=== PATIENT | male | born 1950 ===

== ENCOUNTER 2018-10-26 01:26 | Inpatient (IN) | payer BC, MEDICARE ==
[2018-10-26] MEDS ORDERED: Nitroglycerin 2% Ointment Foilpak UD TOP STA (02:16)
[2018-10-26] MEDS ORDERED: Albuterol-Ipratrop 3 mg / 0.5 (3 ml) UD INH STA (02:17)
[2018-10-26] MEDS ORDERED: Nitroglycerin 2% Ointment Foilpak UD TOP ONE (02:28)
[2018-10-26] MEDS ORDERED: Albuterol-Ipratrop 3 mg / 0.5 (3 ml) UD ONE ×3 (02:30→08:31)
--- NOTE | 2018-10-26 02:37 | ED PDOC ---
HPI: SOB/CHF/COPD Time Seen by Provider: 10/26/18 02:02 Chief Complaint (Nursing): Shortness Of Breath Chief Complaint (Provider): Shortness Of Breath History Per: Patient History/Exam Limitations: no limitations Onset/Duration Of Symptoms: Days (x2) Associated Symptoms: Chest Pain Additional Complaint(s): 68 y/o male with history of HTN, TIA, and diabetes, presents to the ED complaining of shortness of breath since yesterday. Patient states he has had worsening shortness of breath for 2 days and describes dyspnea on exertion as well as chest pain. Patient also reports generalized weakness. PMD: Cachorro Burr Past Medical History Reviewed: Historical Data, Nursing Documentation, Vital Signs Vital Signs: Last Vital Signs Temp 99.2 F 10/26/18 01:48 Pulse 104 H 10/26/18 01:48 Resp 18 10/26/18 01:48 BP 136/65 10/26/18 01:48 Pulse Ox 90 L 10/26/18 01:48 - Medical History PMH: Diabetes, HTN, Hypercholesterolemia, TIA Denies: Chronic Kidney Disease - Surgical History Surgical History: No Surg Hx - Family History Family History: States: Diabetes, Hypertension - Social History Current smoker - smoking cessation education provided: No Alcohol: None Drugs: Denies - Home Medications Home Medications: Ambulatory Orders Medication Instructions Recorded Folic Acid 1 mg PO 09/09/14 Pramipexole Di-HCl [Pramipexole 1 mg PO 09/09/14 Dihydrochloride] Simvastatin 20 mg PO DAILY 09/09/14 Valsartan 320 mg PO DAILY 09/09/14 metFORMIN [glucOPHAGE] 1,000 mg PO BID 09/09/14 Aspirin/Dipyridamole [Aggrenox 1 ea PO BID #0 cap 09/11/14 25-200 mg] Carvedilol [Coreg] 25 mg PO Q12 #0 tab 09/11/14 SITagliptin [Januvia] 100 mg PO DAILY #0 tab 09/11/14 - Allergies Allergies/Adverse Reactions: Allergies Allergy/AdvReac Type Severity Reaction Status Date / Time No Known Allergies Allergy Verified 09/09/14 17:08 Review of Systems ROS Statement: Except As Marked, All Systems Reviewed And Found Negative Constitutional: Positive for: Weakness Cardiovascular: Positive for: Chest Pain Respiratory: Positive for: Shortness of Breath, Other (Dyspnea on Exertion) Physical Exam - Reviewed Nursing Documentation Reviewed: Yes Vital Signs Reviewed: Yes - Physical Exam Appears: Positive for: In Acute Distress (respiratory) Head Exam: Positive for: ATRAUMATIC, NORMAL INSPECTION, NORMOCEPHALIC Skin: Positive for: Normal Color, Warm, DRY Eye Exam: Positive for: EOMI, Normal appearance, PERRL ENT: Positive for: Normal ENT Inspection Neck: Positive for: Normal, Painless ROM Cardiovascular/Chest: Positive for: JVD (1+) Respiratory: Positive for: Rales (bi-basilar) Gastrointestinal/Abdominal: Positive for: Normal Exam, Soft. Negative for: Tenderness Back: Positive for: Normal Inspection Extremity: Positive for: Normal ROM. Negative for: Pedal Edema, Deformity, Swelling (bilateral legs) Neurological/Psych: Positive for: Awake, Alert, Normal Tone. Negative for: Motor/Sensory Deficits - Laboratory Results Result Diagrams: 10/26/18 02:40 10/26/18 02:40 - ECG O2 Sat by Pulse Oximetry: 90 (RA) Pulse Ox Interpretation: Abnormal - Critical Care Total Time (In Min): 30 Documented Critical Care: Time excludes all time spent performint seperately billable procedures Medical Decision Making Medical Decision Making: Time: 02:16 Impression: 68 y/o with CHF Initial Plan: * Duonebs * Lasix * Nitroglycerin * Influenza A B * Labs * CXR 04:01 CXR show mild cardiomegaly. Patient will be placed on observation for chest pain. Case referred to Dr. Burr. Scribe Attestation: Documented by Gerardo Chauhan, acting as a scribe Guillaume Romeo MD Provider Scribe Attestation: All medical record entries made by the Scribe were at my direction and personally dictated by me. I have reviewed the chart and agree that the record accurately reflects my personal performance of the history, physical exam, medical decision making, and the department course for this patient. I have also personally directed, reviewed, and agree with the discharge instructions and disposition Disposition - Clinical Impression Clinical Impression: Chest pain - Patient ED Disposition Is Patient to be Admitted: Yes - Disposition Disposition Time: 04:01 Condition: FAIR - Pt Status Changed To: Hospital Disposition Of: Observation
[2018-10-26 03:00] LABS: BASO % 0.3 % (0.0-2.0); EOS % 0.1 % (0.0-4.0); HEMOGLOBIN 13.4 g/dL (12.0-18.0); LYMPH # 1.2 K/uL (1.0-4.3); LYMPH % 14.5 % (20.0-40.0); MEAN CELL VOLUME 95.2 fl (80.0-94.0); MEAN CORPUSCULAR HEMOGLOBIN 32.4 pg (27.0-31.0); MEAN CORPUSCULAR HGB CONC 34.1 g/dL (33.0-37.0); MONO # 1.2 K/uL (0.0-0.8); MONO % 14.9 % (0.0-10.0); NEUT # 5.8 K/uL (1.8-7.0); NEUT % 70.2 % (50.0-75.0); RBC 4.13 Mil/uL (4.40-5.90); RED CELL DISTRIBUTION WIDTH 12.6 % (11.5-14.5); WHITE BLOOD COUNT 8.2 K/uL (4.8-10.8)
[2018-10-26 03:08] LABS: INR 1.2; PROTHROMBIN TIME 13.3 Seconds (9.8-13.1)
[2018-10-26 03:10] LABS: PARTIAL THROMBOPLASTIN TIME 31.5 Seconds (25.6-37.1)
[2018-10-26 03:14] LABS: ALB/GLOB RATIO 1.1 (1.0-2.1)
[2018-10-26 03:26] LABS: ALBUMIN 3.8 g/dL (3.5-5.0); ALT/SGPT 46 U/L (21-72); AST/SGOT 45 U/L (17-59); BLOOD UREA NITROGEN 18 mg/dl (9-20); CALCIUM 8.6 mg/dL (8.4-10.2); GFR NON-AFRICAN AMERICAN > 60
[2018-10-26 03:36] LABS: B-TYPE NATRIURETIC PEPTIDE 183 pg/ml (0-900)
[2018-10-26 08:07] LABS: ABG ALLEN TEST YES; ARTERIAL BLOOD GAS HCO3 29.9 mmol/L (21-28); ARTERIAL BLOOD GAS HEMOGLOBIN 13.6 g/dL (11.7-17.4); ARTERIAL BLOOD GAS O2 CAPACITY 18.3 mL/dL (16-24); ARTERIAL BLOOD GAS O2 CONTENT 16.5 ML/dL (15-23); ARTERIAL BLOOD GAS O2 SAT 90.4 % (95-98); ARTERIAL BLOOD GAS PCO2 43 mm/Hg (35-45); ARTERIAL BLOOD GAS PH 7.47 (7.35-7.45); ARTERIAL BLOOD GAS PO2 50 mm/Hg (80-100); ARTERIAL BLOOD GAS TCO2 32.6 mmol/L (22-28)
--- NOTE | 2018-10-26 08:24 | CARD ---
APPROVED REPORT Date of service: 10/26/2018 EKG Measurement Heart [id number] <Conclusion> Sinus tachycardia Possible Left atrial enlargement Left axis deviation Left ventricular hypertrophy Cannot rule out Septal infarct, age undetermined Abnormal ECG
[2018-10-26] MEDS: Albuterol-Ipratrop 3 mg / 0.5 (3 ml) UD INH SCH ×3 (08:30→19:10)
[2018-10-26] MEDS ORDERED: Acetylcysteine 10% 4 ML IH ONE ×2 (08:30→09:00)
[2018-10-26] MEDS ORDERED: Sodium Chloride 0.9% 500 ML IV ONE (08:30)
[2018-10-26 08:38] VITALS: BMI 34.2
[2018-10-26 08:59] LABS: SQUAMOUS EPITHIAL 1 /hpf (0-5); URINE BILIRUBIN NEGATIVE (NEGATIVE); URINE BLOOD NEGATIVE (NEGATIVE); URINE CLARITY SLIGHTY-CLOUDY (Clear); URINE COLOR YELLOW (YELLOW); URINE GLUCOSE (UA) >=500 mg/dL (NEGATIVE); URINE LEUKOCYTE ESTERASE NEG Leu/uL (Negative); URINE PROTEIN 100 mg/dL (NEGATIVE); URINE UROBILINOGEN 0.2-1.0 mg/dL (0.2-1.0)
[2018-10-26] MEDS: Enoxaparin 40 mg Syringe SC SCH (09:28)
[2018-10-26] MEDS: guaiFENesin 600 mg ER Tab PO SCH ×2 (09:29→21:12)
[2018-10-26] MEDS: Polymyxin/Trimethoprim Ophth Soln OU SCH ×3 (09:29→21:12)
[2018-10-26] MEDS ORDERED: Sodium Chloride 0.9% 50 ML IV ONE (10:28)
[2018-10-26] MEDS ORDERED: Iodixanol 320 MG/ML 100 ML BOTTLE IV ONE (10:28)
--- NOTE | 2018-10-26 11:25 | RAD ---
Date of service: 10/26/2018 HISTORY: chest pain COMPARISON: 09/09/2014 TECHNIQUE: 1 view obtained. FINDINGS: LUNGS: No active pulmonary disease. PLEURA: No significant pleural effusion identified, no pneumothorax apparent. CARDIOVASCULAR: No aortic atherosclerotic calcification present. Normal cardiac size. No pulmonary vascular congestion. OSSEOUS STRUCTURES: No significant abnormalities. VISUALIZED UPPER ABDOMEN: Normal. OTHER FINDINGS: None. IMPRESSION: No active disease.
[2018-10-26] MEDS ORDERED: Dextrose 50% SYRINGE Inj (50 ml) IV PRN (11:28)
[2018-10-26] MEDS ORDERED: Glucagon Recombinant 1 mg Inj IM PRN (11:28)
[2018-10-26] MEDS ORDERED: Insulin Lispro (humaLOG) 100 Units/ml Inj SC ONE (11:31)
[2018-10-26] MEDS: levoFLOXacin 750 mg in D5W 750 MG/150 ML BAG IVPB SCH (11:33)
[2018-10-26] MEDS: Insulin Regular 100 units/ml SC SCH ×3 (11:33→22:07)
[2018-10-26] MEDS ORDERED: Insulin Regular 100 units/ml ONE (11:41)
[2018-10-26] MEDS ORDERED: Pneumococcal 23-Valent Vaccine IM ONE (12:27)
--- NOTE | 2018-10-26 12:34 | CT ---
Date of service: 10/26/2018 PROCEDURE: CT Chest with contrast (Pulmonary Angiogram) HISTORY: Dyspnea, Hypoxia, elevated D-dimer; rule out PE COMPARISON: Not available TECHNIQUE: Axial computed tomography images were obtained of the chest in the pulmonary arterial phase of enhancement. Coronal and sagittal reformatted images were created and reviewed. Intravenous contrast dose: 99 cc Visipaque 320 Radiation dose: Total exam DLP = 344.48 mGy-cm. This CT exam was performed using one or more of the following dose reduction techniques: Automated exposure control, adjustment of the mA and/or kV according to patient size, and/or use of iterative reconstruction technique. FINDINGS: PULMONARY ARTERIES: Technically limited examination due to suboptimal timing of the scan relative to the contrast bolus. No evidence of pulmonary arterial filling defect in the main, lobar and segmental arteries. Unable to adequately evaluate subsegmental pulmonary artery branches for pulmonary embolism. AORTA: No acute findings. No thoracic aortic aneurysm. There is atherosclerotic calcification of the thoracic aorta. LUNGS: The lungs are significant for multiple tiny nodules in both lower lobes with some areas of a confluency. This likely represents small airways disease which is nonspecific. Consider the possibility of an infectious etiology. There is also subsegmental atelectasis in both lower lobes. PLEURAL SPACES: Unremarkable. No effusion or pneumothorax. HEART: Unremarkable. No cardiomegaly. No significant pericardial effusion. LYMPH NODES: No lymphadenopathy. BONES, CHEST WALL: Unremarkable. No fracture or destructive lesion OTHER FINDINGS: Unremarkable. IMPRESSION: Limited examination. No evidence of pulmonary embolism. Unable to evaluate subsegmental pulmonary artery branches for pulmonary embolism. Numerous tiny nodules in both lower lobes likely reflecting small airways disease common nonspecific. Bilateral lower lobe subsegmental atelectasis. No additional abnormality.
[2018-10-26] MEDS ORDERED: guaiFENesin DM 200 mg-20 mg/10 ml UD PO ONE ×2 (15:42)
[2018-10-26] MEDS: Aspirin-Dipyridamole 200-25 mg ER Cap PO SCH (16:16)
[2018-10-26] MEDS ORDERED: GlipiZIDE 10 mg SR Tab PO SCH (17:00)
[2018-10-27] MEDS: Albuterol-Ipratrop 3 mg / 0.5 (3 ml) UD INH SCH ×7 (02:41→23:41)
[2018-10-27] MEDS: Polymyxin/Trimethoprim Ophth Soln OU SCH ×4 (04:33→22:07)
[2018-10-27 06:15] LABS: HDL CHOLESTEROL 31 MG/DL (30-70)
[2018-10-27 06:25] LABS: LDL CHOLESTEROL 46 mg/dL (0-129)
[2018-10-27] MEDS ORDERED: HCTHIAZID PO SCH (09:00)
[2018-10-27] MEDS ORDERED: INSULIN GLARGINE HUM REC ANLOG 20 UNIT SQ SCH (09:00)
[2018-10-27] MEDS ORDERED: VALSARTAN PO SCH (09:00)
[2018-10-27] MEDS ORDERED: AMLODIPINE PO SCH (09:00)
[2018-10-27] MEDS: Aspirin-Dipyridamole 200-25 mg ER Cap PO SCH ×2 (09:45→18:02)
[2018-10-27] MEDS: GlipiZIDE 10 mg SR Tab PO SCH ×2 (09:46→18:02)
[2018-10-27] MEDS: Enoxaparin 40 mg Syringe SC SCH (09:48)
[2018-10-27] MEDS: guaiFENesin 600 mg ER Tab PO SCH ×2 (09:49→22:06)
--- NOTE | 2018-10-27 09:49 | CP.PCM.HP ---
<Jef Figueroa - Last Filed: 10/27/18 09:38> History of Present Illness - History of Present Illness History of Present Illness: 68 y/o male with hx of HTN, DM, Hx of CVA and Former Smoker, who presents to ED with complaints of productive cough, chest pain, generalized weakness, and subjective fevers admitted for further evaluation of chest pain. States he recently went on vacation to [facility] and upon returning 1 week ago, started having cough, congestion, and chest pain with exertion. He has also felt very weak in his legs. Denies sick contacts. PMD: Dr. Burr Present on Admission - Present on Admission Any Indicators Present on Admission: No History of DVT/PE: No History of Uncontrolled Diabetes: No Urinary Catheter: No Decubitus Ulcer Present: No Past Patient History - Past Medical History & Family History Past Medical History?: Yes - Past Social History Alcohol: None Drugs: Denies - CARDIAC Hx Hypercholesterolemia: Yes Hx Hypertension: Yes - PULMONARY Hx Respiratory Disorders: No - NEUROLOGICAL Hx Transient Ischemic Attacks (TIA): Yes - HEENT Hx HEENT Problems: No - RENAL Hx Chronic Kidney Disease: No - ENDOCRINE/METABOLIC Hx Endocrine Disorders: Yes (DM II) Hx Diabetes Mellitus Type 2: Yes - HEMATOLOGICAL/ONCOLOGICAL Hx Blood Disorders: No - INTEGUMENTARY Hx Dermatological Problems: No - MUSCULOSKELETAL/RHEUMATOLOGICAL Hx Musculoskeletal Disorders: No Hx Falls: No - GASTROINTESTINAL Hx Gastrointestinal Disorders: No - GENITOURINARY/GYNECOLOGICAL Hx Genitourinary Disorders: No - PSYCHIATRIC Hx Psychophysiologic Disorder: No Hx Substance Use: No - SURGICAL HISTORY Hx Surgeries: No - ANESTHESIA Hx Anesthesia: No Hx Anesthesia Reactions: No Meds Allergies/Adverse Reactions: Allergies Allergy/AdvReac Type Severity Reaction Status Date / Time No Known Allergies Allergy Verified 09/09/14 17:08 Physical Exam - Constitutional Appears: No Acute Distress - Head Exam Head Exam: NORMAL INSPECTION - Eye Exam Eye Exam: Normal appearance - ENT Exam ENT Exam: Mucous Membranes Moist - Neck Exam Neck exam: Positive for: Full Rom - Respiratory Exam Respiratory Exam: Rhonchi (Scattered rhonchi that partially clears with cough ). absent: Rales, Wheezes, Stridor - Cardiovascular Exam Cardiovascular Exam: REGULAR RHYTHM - GI/Abdominal Exam GI & Abdominal Exam: Normal Bowel Sounds - Extremities Exam Extremities exam: Positive for: normal inspection. Negative for: pedal edema - Neurological Exam Neurological exam: Alert, Oriented x3 - Psychiatric Exam Psychiatric exam: Normal Affect - Skin Skin Exam: Normal Color Results - Vital Signs Recent Vital Signs: Last Vital Signs Temp 97.5 F L 10/26/18 07:28 Pulse 89 10/26/18 08:49 Resp 20 10/26/18 08:49 BP 119/60 10/26/18 08:49 Pulse Ox 98 10/26/18 08:49 - Labs Result Diagrams: 10/26/18 02:40 10/26/18 02:40 Labs: Laboratory Results - last 24 hr 10/26/18 10/26/18 10/26/18 02:17 02:40 02:40 WBC 8.2 RBC 4.13 L Hgb 13.4 Hct 39.3 MCV 95.2 H MCH 32.4 H MCHC 34.1 RDW 12.6 Plt Count 262 MPV 8.0 Neut % (Auto) 70.2 Lymph % (Auto) 14.5 L [place] % (Auto) 14.9 H Eos % (Auto) 0.1 Baso % (Auto) 0.3 Neut # (Auto) 5.8 Lymph # (Auto) 1.2 [place] # (Auto) 1.2 H Eos # (Auto) 0.0 Baso # (Auto) 0.0 PT INR APTT D-Dimer, Quantitative pCO2 pO2 HCO3 ABG pH ABG Total CO2 ABG O2 Saturation ABG O2 Content ABG Base Excess ABG Hemoglobin ABG Carboxyhemoglobin POC ABG HHb (Measured) ABG Methemoglobin ABG O2 Capacity Denis Test A-a O2 Difference Hgb O2 Saturation FiO2 Sodium 134 Potassium 3.6 Chloride 93 L Carbon Dioxide 32 H Anion Gap 13 BUN 18 Creatinine 1.1 Est GFR ( Amer) > 60 Est GFR (Non-Af Amer) > 60 POC Glucose (mg/dL) 326 H Random Glucose 313 H Calcium 8.6 Total Bilirubin 1.3 AST 45 ALT 46 Alkaline Phosphatase 113 Troponin I 0.0120 NT-Pro-B Natriuret Pep 183 Total Protein 7.4 Albumin 3.8 Globulin 3.6 Albumin/Globulin Ratio 1.1 Urine Color Urine Clarity Urine pH Ur Specific [place] Urine Protein Urine Glucose (UA) Urine Ketones Urine Blood Urine Nitrate Urine Bilirubin Urine Urobilinogen Ur Leukocyte Esterase Urine RBC (Auto) Urine Microscopic WBC Ur Squamous Epith Cells Hyaline Casts Influenza Typ A,B (EIA) 10/26/18 10/26/18 10/26/18 02:40 02:40 07:56 WBC RBC Hgb Hct MCV MCH MCHC RDW Plt Count MPV Neut % (Auto) Lymph % (Auto) [place] % (Auto) Eos % (Auto) Baso % (Auto) Neut # (Auto) Lymph # (Auto) [place] # (Auto) Eos # (Auto) Baso # (Auto) PT 13.3 H INR 1.2 APTT 31.5 D-Dimer, Quantitative pCO2 43 pO2 50 L HCO3 29.9 H ABG pH 7.47 H ABG Total CO2 32.6 H ABG O2 Saturation 90.4 L ABG O2 Content 16.5 ABG Base Excess 6.8 H ABG Hemoglobin 13.6 ABG Carboxyhemoglobin 2.1 H POC ABG HHb (Measured) 9.2 H ABG Methemoglobin 2.1 ABG O2 Capacity 18.3 Denis Test Yes A-a O2 Difference 46.0 Hgb O2 Saturation 86.6 L FiO2 21.0 Sodium Potassium Chloride Carbon Dioxide Anion Gap BUN Creatinine Est GFR ( Amer) Est GFR (Non-Af Amer) POC Glucose (mg/dL) Random Glucose Calcium Total Bilirubin AST ALT Alkaline Phosphatase Troponin I NT-Pro-B Natriuret Pep Total Protein Albumin Globulin Albumin/Globulin Ratio Urine Color Urine Clarity Urine pH Ur Specific [place] Urine Protein Urine Glucose (UA) Urine Ketones Urine Blood Urine Nitrate Urine Bilirubin Urine Urobilinogen Ur Leukocyte Esterase Urine RBC (Auto) Urine Microscopic WBC Ur Squamous Epith Cells Hyaline Casts Influenza Typ A,B (EIA) Negative for flu a/b 10/26/18 10/26/18 10/26/18 08:15 08:15 08:20 WBC RBC Hgb Hct MCV MCH MCHC RDW Plt Count MPV Neut % (Auto) Lymph % (Auto) [place] % (Auto) Eos % (Auto) Baso % (Auto) Neut # (Auto) Lymph # (Auto) [place] # (Auto) Eos # (Auto) Baso # (Auto) PT INR APTT D-Dimer, Quantitative 767 H pCO2 pO2 HCO3 ABG pH ABG Total CO2 ABG O2 Saturation ABG O2 Content ABG Base Excess ABG Hemoglobin ABG Carboxyhemoglobin POC ABG HHb (Measured) ABG Methemoglobin ABG O2 Capacity Denis Test A-a O2 Difference Hgb O2 Saturation FiO2 Sodium Potassium Chloride Carbon Dioxide Anion Gap BUN Creatinine Est GFR ( Amer) Est GFR (Non-Af Amer) POC Glucose (mg/dL) Random Glucose Calcium Total Bilirubin AST ALT Alkaline Phosphatase Troponin I 0.0150 NT-Pro-B Natriuret Pep Total Protein Albumin Globulin Albumin/Globulin Ratio Urine Color Yellow Urine Clarity Slighty-cloudy Urine pH 6.0 Ur Specific [place] 1.013 Urine Protein 100 Urine Glucose (UA) >=500 Urine Ketones Negative Urine Blood Negative Urine Nitrate Negative Urine Bilirubin Negative Urine Urobilinogen 0.2-1.0 Ur Leukocyte Esterase Neg Urine RBC (Auto) 1 Urine Microscopic WBC 3 Ur Squamous Epith Cells 1 Hyaline Casts 3-5 H Influenza Typ A,B (EIA) 10/26/18 08:48 WBC RBC Hgb Hct MCV MCH MCHC RDW Plt Count MPV Neut % (Auto) Lymph % (Auto) [place] % (Auto) Eos % (Auto) Baso % (Auto) Neut # (Auto) Lymph # (Auto) [place] # (Auto) Eos # (Auto) Baso # (Auto) PT INR APTT D-Dimer, Quantitative pCO2 pO2 HCO3 ABG pH ABG Total CO2 ABG O2 Saturation ABG O2 Content ABG Base Excess ABG Hemoglobin ABG Carboxyhemoglobin POC ABG HHb (Measured) ABG Methemoglobin ABG O2 Capacity Denis Test A-a O2 Difference Hgb O2 Saturation FiO2 Sodium Potassium Chloride Carbon Dioxide Anion Gap BUN Creatinine Est GFR ( Amer) Est GFR (Non-Af Amer) POC Glucose (mg/dL) 346 H Random Glucose Calcium Total Bilirubin AST ALT Alkaline Phosphatase Troponin I NT-Pro-B Natriuret Pep Total Protein Albumin Globulin Albumin/Globulin Ratio Urine Color Urine Clarity Urine pH Ur Specific [place] Urine Protein Urine Glucose (UA) Urine Ketones Urine Blood Urine Nitrate Urine Bilirubin Urine Urobilinogen Ur Leukocyte Esterase Urine RBC (Auto) Urine Microscopic WBC Ur Squamous Epith Cells Hyaline Casts Influenza Typ A,B (EIA) Assessment & Plan - Assessment and Plan (Free Text) Assessment: 68 y/o male with hx of HTN, DM, Hx of CVA and Former Smoker, who presents to ED with complaints of productive cough, chest pain, generalized weakness, and subjective fevers admitted for further evaluation of chest pain. # Chest pain # Cough # Dyspnea # Hyperglycemia - Chest pain: EKG NSR, no ischemic findings. Cardiac Enzymes negative x3. Cardiology consulted given high risk factors; may benefit from stress test - Levofloxacin for likely CAP - D dimer elevated; CT Angio: PE ruled out - Significant mucuous secretions heard in airways; Chest physiotherapy, mucolytics, Duonebulizer q4 - Pt is poorly compliant with home insulin; restarted here and educated on medication compliance; F/U Hga1c - PT for mobility and strength - Management of chronic conditions as ordered Discussed case with Dr. Leno Figueroa, PGY2 <Cachorro Burr - Last Filed: 11/03/18 06:14> Results - Vital Signs Recent Vital Signs: Last Vital Signs Temp 98.0 F 10/30/18 16:18 Pulse 70 10/30/18 16:18 Resp 16 10/30/18 16:18 BP 109/57 L 10/30/18 16:18 Pulse Ox 95 10/30/18 16:18 - Labs Result Diagrams: 10/29/18 05:33 10/29/18 05:33 Labs: Laboratory Results - last 24 hr 10/29/18 10/30/18 22:57 05:12 POC Glucose (mg/dL) 312 H 234 H Assessment & Plan - Assessment and Plan (Free Text) Assessment: Patient was personally seen and examined by me in rounds with residents. Available labs and diagnostic data reviewed. Case, Patient's condition and management plan discussed with residents in rounds. Agree with resident's progress note. Plan: As ordered.
--- NOTE | 2018-10-27 09:53 | CP.PCM.PN ---
<Henry,Jef - Last Filed: 10/27/18 09:49> Subjective - Date & Time of Evaluation Date of Evaluation: 10/27/18 Time of Evaluation: 08:00 - Subjective Subjective: Pt seen and examined this am with Dr. Burr. States his breathing is significantly improved and chest pain is resolved. Discussed plan with patient. Objective - Vital Signs/Intake and Output Vital Signs (last 24 hours): Temp Pulse Resp BP Pulse Ox 98.5 F 80 18 127/70 96 10/27/18 08:13 10/27/18 08:13 10/27/18 08:13 10/27/18 08:13 10/27/18 08:13 - Medications Medications: Current Medications Acetaminophen (Tylenol 325mg Tab) 650 mg PO Q6 PRN PRN Reason: Fever >100.4 F Acetylcysteine (Mucomyst 10% 4ml) 2 ml IH RBID BETH Albuterol/Ipratropium (Duoneb 3 Mg/0.5 Mg (3 Ml) Ud) 3 ml INH RQ4 [facility] Last Admin: 10/27/18 08:54 Dose: 3 ml Atorvastatin Calcium (Lipitor) 80 mg PO HS BETH Carvedilol (Coreg) 6.25 mg PO DAILY [facility] Dextrose (Dextrose 50% Inj) 0 ml IV STAT PRN; Protocol PRN Reason: Hypoglycemia Protocol Dextrose (Glutose 15) 0 gm PO ONCE PRN; Protocol PRN Reason: Hypoglycemia Protocol Dipyridamole/Aspirin (Aggrenox 25-200 Mg) 1 ea PO BID [facility] Last Admin: 10/26/18 16:16 Dose: 1 ea Enoxaparin Sodium (Lovenox) 40 mg SC DAILY [facility]; Protocol Last Admin: 10/26/18 09:28 Dose: 40 mg Famotidine (Pepcid) 20 mg PO BID [facility] Last Admin: 10/26/18 16:16 Dose: 20 mg Fenofibrate (Tricor) 145 mg PO DAILY [facility] Gabapentin (Neurontin) 300 mg PO TID [facility] Last Admin: 10/26/18 16:16 Dose: 300 mg Glipizide (Glucotrol Xl) 10 mg PO BIDWM [facility] Glucagon (Glucagen Diagnostic Kit) 0 mg IM STAT PRN; Protocol PRN Reason: Hypoglycemia Protocol Guaifenesin (Mucinex La) 600 mg PO Q12 [facility] Last Admin: 10/26/18 21:12 Dose: 600 mg Home Med (Amlodipine/Valsartan/Hcthiazid [Exforge Hct 10-320-25 Mg Tab]) 1 tab PO DAILY [facility] Home Med (Empagliflozin [Jardiance]) 25 mg PO DAILY [facility] Home Med (Insulin Glargine,Hum.Rec.Anlog [Tru Oliveros]) 20 units SQ DAILY [facility] Levofloxacin/Dextrose (Levaquin 750mg) 750 mg in 150 mls @ 100 mls/hr IVPB DAILY [facility]; Protocol Last Admin: 10/26/18 11:33 Dose: 100 mls/hr Insulin Human Regular (Humulin R) 0 units SC ACHS [facility]; Protocol Last Admin: 10/26/18 22:07 Dose: Not Given Metformin HCl (Glucophage) 1,000 mg PO BID [facility] Last Admin: 10/26/18 16:16 Dose: 1,000 mg Nitroglycerin (Nitrostat Sl Tab) 0.4 mg SL Q5M PRN PRN Reason: chest pain Polymyxin/Trimethoprim Sulfate (Polytrim Ophth Soln) 1 drop OU Q6 [facility] Last Admin: 10/27/18 04:33 Dose: 1 drop - Labs Labs: 10/26/18 02:40 10/26/18 02:40 PT 13.3 Seconds (9.8-13.1) H 10/26/18 02:40 INR 1.2 10/26/18 02:40 APTT 31.5 Seconds (25.6-37.1) 10/26/18 02:40 - Constitutional Appears: No Acute Distress - Head Exam Head Exam: NORMAL INSPECTION - Eye Exam Eye Exam: Normal appearance - ENT Exam ENT Exam: Mucous Membranes Moist - Respiratory Exam Respiratory Exam: Clear to Ausculation Bilateral, Rhonchi (scattered, imrpoved ). absent: Accessory Muscle Use, Rales, Wheezes - Cardiovascular Exam Cardiovascular Exam: REGULAR RHYTHM - GI/Abdominal Exam GI & Abdominal Exam: Normal Bowel Sounds - Extremities Exam Extremities Exam: Normal Inspection - Neurological Exam Neurological Exam: Alert, Awake, Normal Gait - Psychiatric Exam Psychiatric exam: Normal Affect - Skin Skin Exam: Normal Color Assessment and Plan - Assessment and Plan (Free Text) Assessment: 68 y/o male with hx of HTN, DM, Hx of CVA and Former Smoker, who presents to ED with complaints of productive cough, chest pain, generalized weakness, and subjective fevers admitted for further evaluation of chest pain. # Chest pain # Cough # Dyspnea # Hyperglycemia - Chest pain: EKG NSR, no ischemic findings. Cardiac Enzymes negative x3. Cardiology consulted given high risk factors; may benefit from stress test - Levofloxacin for likely CAP - D dimer elevated; CT Angio: PE ruled out - Significant mucuous secretions heard in airways; Chest physiotherapy, mucolytics, Duonebulizer q4 - Pt is poorly compliant with home insulin; restarted here and educated on medication compliance; F/U Hga1c - PT for mobility and strength - Management of chronic conditions as ordered Discussed case with Dr. Leno Figueroa, PGY2 <Cachorro Burr - Last Filed: 11/03/18 06:14> Objective - Vital Signs/Intake and Output Vital Signs (last 24 hours): Temp Pulse Resp BP Pulse Ox 98.0 F 70 16 109/57 L 95 10/30/18 16:18 10/30/18 16:18 10/30/18 16:18 10/30/18 16:18 10/30/18 16:18 - Labs Labs: 10/29/18 05:33 10/29/18 05:33 PT 13.3 Seconds (9.8-13.1) H 10/26/18 02:40 INR 1.2 10/26/18 02:40 APTT 31.5 Seconds (25.6-37.1) 10/26/18 02:40 Assessment and Plan - Assessment and Plan (Free Text) Assessment: Patient was personally seen and examined by me in rounds with residents. Available labs and diagnostic data reviewed. Case, Patient's condition and management plan discussed with residents in rounds. Agree with resident's progress note. Plan: As ordered.
[2018-10-27] MEDS: Insulin Regular 100 units/ml SC SCH ×4 (10:53→22:05)
[2018-10-27] MEDS: levoFLOXacin 750 mg in D5W 750 MG/150 ML BAG IVPB SCH (10:54)
--- NOTE | 2018-10-27 14:50 | CP.PCM.CON ---
<Brea Mendoza - Last Filed: 10/27/18 16:06> History of Present Illness - History of Present Illness History of Present Illness: Brea Mendoza, PGY-1, Cardiology Consult Note for Dr. Denise 68 year old male with past medical history of diabetes mellitus and hypertension presents with chest pain, shortness of breath, and cough for 1 month. Patient reports going to [facility] from October 03 to the . Patient started to have cough with yellow sputum, shortness of breath, but no fever after being in the rain. Patient subsequently had pressure like chest pain starting on October 18. Pain stopped yesterday. Patient had no exacerbating or remitting factors for the chest pain. Patient denies any other symptoms at this time. PMH: Diabetes, Hypertension PSH: denies FMHx: Mother from stomach cancer at 60, Brother had AAA Allergies: NKDA SHx: smoked 1/2 PPD for 30 years. Quit 15 years ago. Occasionally drinks, no recreational drug use PMD: Dr. Cheung Medications: Metformin Review of Systems - Review of Systems Review of Systems: except as mentioned in HPI Past Patient History - Past Medical History & Family History Past Medical History?: Yes - Past Social History Alcohol: None Drugs: Denies - CARDIAC Hx Hypercholesterolemia: Yes Hx Hypertension: Yes - PULMONARY Hx Respiratory Disorders: No - NEUROLOGICAL Hx Transient Ischemic Attacks (TIA): Yes - HEENT Hx HEENT Problems: No - RENAL Hx Chronic Kidney Disease: No - ENDOCRINE/METABOLIC Hx Endocrine Disorders: Yes (DM II) Hx Diabetes Mellitus Type 2: Yes - HEMATOLOGICAL/ONCOLOGICAL Hx Blood Disorders: No - INTEGUMENTARY Hx Dermatological Problems: No - MUSCULOSKELETAL/RHEUMATOLOGICAL Hx Musculoskeletal Disorders: No Hx Falls: No - GASTROINTESTINAL Hx Gastrointestinal Disorders: No - GENITOURINARY/GYNECOLOGICAL Hx Genitourinary Disorders: No - PSYCHIATRIC Hx Psychophysiologic Disorder: No Hx Substance Use: No - SURGICAL HISTORY Hx Surgeries: No - ANESTHESIA Hx Anesthesia: No Hx Anesthesia Reactions: No Meds Allergies/Adverse Reactions: Allergies Allergy/AdvReac Type Severity Reaction Status Date / Time No Known Allergies Allergy Verified 09/09/14 17:08 - Medications Medications: Current Medications Acetaminophen (Tylenol 325mg Tab) 650 mg PO Q6 PRN PRN Reason: Fever >100.4 F Acetylcysteine (Mucomyst 10% 4ml) 2 ml IH RBID [facility] Albuterol/Ipratropium (Duoneb 3 Mg/0.5 Mg (3 Ml) Ud) 3 ml INH RQ4 [facility] Last Admin: 10/27/18 11:40 Dose: 3 ml Atorvastatin Calcium (Lipitor) 80 mg PO HS [facility] Last Admin: 10/27/18 09:48 Dose: 80 mg Carvedilol (Coreg) 6.25 mg PO DAILY [facility] Last Admin: 10/27/18 09:45 Dose: 6.25 mg Dextrose (Dextrose 50% Inj) 0 ml IV STAT PRN; Protocol PRN Reason: Hypoglycemia Protocol Dextrose (Glutose 15) 0 gm PO ONCE PRN; Protocol PRN Reason: Hypoglycemia Protocol Dipyridamole/Aspirin (Aggrenox 25-200 Mg) 1 ea PO BID [facility] Last Admin: 10/27/18 09:45 Dose: 1 ea Enoxaparin Sodium (Lovenox) 40 mg SC DAILY [facility]; Protocol Last Admin: 10/27/18 09:48 Dose: 40 mg Famotidine (Pepcid) 20 mg PO BID [facility] Last Admin: 10/27/18 09:49 Dose: 20 mg Fenofibrate (Tricor) 145 mg PO DAILY [facility] Last Admin: 10/27/18 09:50 Dose: 145 mg Gabapentin (Neurontin) 300 mg PO TID [facility] Last Admin: 10/27/18 13:44 Dose: 300 mg Glipizide (Glucotrol Xl) 10 mg PO BIDWM [facility] Last Admin: 10/27/18 09:46 Dose: 10 mg Glucagon (Glucagen Diagnostic Kit) 0 mg IM STAT PRN; Protocol PRN Reason: Hypoglycemia Protocol Guaifenesin (Mucinex La) 600 mg PO Q12 [facility] Last Admin: 10/27/18 09:49 Dose: 600 mg Home Med (Amlodipine/Valsartan/Hcthiazid [Exforge Hct 10-320-25 Mg Tab]) 1 tab PO DAILY [facility] Home Med (Empagliflozin [Jardiance]) 25 mg PO DAILY [facility] Home Med (Insulin Glargine,Hum.Rec.Anlog [Tru Oliveros]) 20 units SQ DAILY [facility] Levofloxacin/Dextrose (Levaquin 750mg) 750 mg in 150 mls @ 100 mls/hr IVPB DAILY [facility]; Protocol Last Admin: 10/27/18 10:54 Dose: 100 mls/hr Insulin Human Regular (Humulin R) 0 units SC ACHS [facility]; Protocol Last Admin: 10/27/18 13:45 Dose: 3 units Metformin HCl (Glucophage) 1,000 mg PO BID [facility] Last Admin: 10/27/18 09:46 Dose: 1,000 mg Nitroglycerin (Nitrostat Sl Tab) 0.4 mg SL Q5M PRN PRN Reason: chest pain Polymyxin/Trimethoprim Sulfate (Polytrim Ophth Soln) 1 drop OU Q6 [facility] Last Admin: 10/27/18 09:50 Dose: 1 drop Physical Exam - Constitutional Appears: Well, Non-toxic, No Acute Distress - Head Exam Head Exam: ATRAUMATIC, NORMAL INSPECTION, NORMOCEPHALIC - Eye Exam Eye Exam: EOMI, PERRL - ENT Exam ENT Exam: Mucous Membranes Moist - Respiratory Exam Respiratory Exam: Clear to Auscultation Bilateral, NORMAL BREATHING PATTERN - Cardiovascular Exam Cardiovascular Exam: REGULAR RHYTHM, RRR, +S1, +S2 - GI/Abdominal Exam GI & Abdominal Exam: Normal Bowel Sounds, Soft. absent: Tenderness - Extremities Exam Extremities exam: Positive for: full ROM, normal inspection. Negative for: pedal edema - Neurological Exam Neurological exam: Alert, CN II-XII Intact, Oriented x3 - Skin Skin Exam: Dry, Intact, Normal Color Results - Vital Signs Recent Vital Signs: Last Vital Signs Temp 99.2 F 10/27/18 11:54 Pulse 83 10/27/18 11:54 Resp 18 10/27/18 11:54 BP 137/73 10/27/18 11:54 Pulse Ox 94 L 10/27/18 11:54 - Labs Result Diagrams: 10/26/18 02:40 10/26/18 02:40 Labs: Laboratory Results - last 24 hr 10/26/18 10/26/18 10/27/18 20:19 21:24 05:00 POC Glucose (mg/dL) 270 H Hemoglobin A1c Lactic Acid Troponin I < 0.0120 NT-Pro-B Natriuret Pep Triglycerides 110 D Cholesterol 107 LDL Cholesterol Direct 46 HDL Cholesterol 31 10/27/18 10/27/18 10/27/18 05:00 06:11 10:00 POC Glucose (mg/dL) 158 H Hemoglobin A1c 11.6 H D Lactic Acid Troponin I NT-Pro-B Natriuret Pep 112 Triglycerides Cholesterol LDL Cholesterol Direct HDL Cholesterol 10/27/18 10/27/18 10/27/18 10:00 10:07 13:33 POC Glucose (mg/dL) 302 H 240 H Hemoglobin A1c Lactic Acid 0.9 Troponin I NT-Pro-B Natriuret Pep Triglycerides Cholesterol LDL Cholesterol Direct HDL Cholesterol Assessment & Plan - Assessment and Plan (Free Text) Assessment: Chest pain with ACS rule out Diabetes Mellitus Hypertension Plan: Chest pain with ACS rule out Diabetes Mellitus Hypertension Chest CT: no evidence of PE, numerous tiny nodules in both lower lobes likely reflecting small airway disease, bilateral lobe subsegmental atelectasis EKG: sinus tachycardia with left axis deviation with HR: 101 Will follow up echocardiogram results Nuclear stress test likely tomorrow to evaluate for CAD Medications: aspirin/dipyridamole lipitor 80 mg daily coreg 6.25 mg daily fenofibrate 145 mg daily nitroglycerin 0.4 mg [id number] metformin 1000 mg BID - Date & Time Date: 10/27/18 Time: 14:51 <Kleber Denise - Last Filed: 10/27/18 23:23> Meds - Medications Medications: Current Medications Acetaminophen (Tylenol 325mg Tab) 650 mg PO Q6 PRN PRN Reason: Fever >100.4 F Acetylcysteine (Mucomyst 10% 4ml) 2 ml IH RBID [facility] Last Admin: 10/27/18 19:26 Dose: 2 ml Albuterol/Ipratropium (Duoneb 3 Mg/0.5 Mg (3 Ml) Ud) 3 ml INH RQ4 [facility] Last Admin: 10/27/18 19:26 Dose: 3 ml Atorvastatin Calcium (Lipitor) 80 mg PO HS [facility] Last Admin: 10/27/18 22:06 Dose: 80 mg Carvedilol (Coreg) 6.25 mg PO DAILY [facility] Last Admin: 10/27/18 09:45 Dose: 6.25 mg Dextrose (Dextrose 50% Inj) 0 ml IV STAT PRN; Protocol PRN Reason: Hypoglycemia Protocol Dextrose (Glutose 15) 0 gm PO ONCE PRN; Protocol PRN Reason: Hypoglycemia Protocol Dipyridamole/Aspirin (Aggrenox 25-200 Mg) 1 ea PO BID [facility] Last Admin: 10/27/18 18:02 Dose: 1 ea Enoxaparin Sodium (Lovenox) 40 mg SC DAILY [facility]; Protocol Last Admin: 10/27/18 09:48 Dose: 40 mg Famotidine (Pepcid) 20 mg PO BID [facility] Last Admin: 10/27/18 18:03 Dose: 20 mg Fenofibrate (Tricor) 145 mg PO DAILY [facility] Last Admin: 10/27/18 09:50 Dose: 145 mg Gabapentin (Neurontin) 300 mg PO TID [facility] Last Admin: 10/27/18 18:03 Dose: 300 mg Glipizide (Glucotrol Xl) 10 mg PO BIDWM [facility] Last Admin: 10/27/18 18:02 Dose: 10 mg Glucagon (Glucagen Diagnostic Kit) 0 mg IM STAT PRN; Protocol PRN Reason: Hypoglycemia Protocol Guaifenesin (Mucinex La) 600 mg PO Q12 [facility] Last Admin: 10/27/18 22:06 Dose: 600 mg Home Med (Amlodipine/Valsartan/Hcthiazid [Exforge Hct 10-320-25 Mg Tab]) 1 tab PO DAILY [facility] Home Med (Empagliflozin [Jardiance]) 25 mg PO DAILY [facility] Home Med (Insulin Glargine,Hum.Rec.Anlog [Toscotty Oliveros]) 20 units SQ DAILY [facility] Levofloxacin/Dextrose (Levaquin 750mg) 750 mg in 150 mls @ 100 mls/hr IVPB DAILY [facility]; Protocol Last Admin: 10/27/18 10:54 Dose: 100 mls/hr Insulin Human Regular (Humulin R) 0 units SC ACHS [facility]; Protocol Last Admin: 10/27/18 22:05 Dose: Not Given Metformin HCl (Glucophage) 1,000 mg PO BID [facility] Last Admin: 10/27/18 18:02 Dose: 1,000 mg Nitroglycerin (Nitrostat Sl Tab) 0.4 mg SL Q5M PRN PRN Reason: chest pain Polymyxin/Trimethoprim Sulfate (Polytrim Ophth Soln) 1 drop OU Q6 [facility] Last Admin: 10/27/18 22:07 Dose: 1 drop Results - Vital Signs Recent Vital Signs: Last Vital Signs Temp 98.2 F 10/27/18 19:45 Pulse 71 10/27/18 19:45 Resp 18 10/27/18 19:45 BP 115/65 10/27/18 19:45 Pulse Ox 94 L 10/27/18 19:45 - Labs Result Diagrams: 10/26/18 02:40 10/26/18 02:40 Labs: Laboratory Results - last 24 hr 10/27/18 10/27/18 10/27/18 05:00 05:00 06:11 POC Glucose (mg/dL) 158 H Hemoglobin A1c 11.6 H D Lactic Acid NT-Pro-B Natriuret Pep Triglycerides 110 D Cholesterol 107 LDL Cholesterol Direct 46 HDL Cholesterol 31 10/27/18 10/27/18 10/27/18 10:00 10:00 10:07 POC Glucose (mg/dL) 302 H Hemoglobin A1c Lactic Acid 0.9 NT-Pro-B Natriuret Pep 112 Triglycerides Cholesterol LDL Cholesterol Direct HDL Cholesterol 10/27/18 10/27/18 10/27/18 13:33 15:33 21:32 POC Glucose (mg/dL) 240 H 174 H 126 H Hemoglobin A1c Lactic Acid NT-Pro-B Natriuret Pep Triglycerides Cholesterol LDL Cholesterol Direct HDL Cholesterol Attending/Attestation - Attestation I have personally seen and examined this patient.: Yes I have fully participated in the care of the patient.: Yes I have reviewed all pertinent clinical information: Yes Notes (Text): 10/27/18 23:23 plan for stress test in am npo p mn
[2018-10-27] MEDS: Acetylcysteine 10% 4 ML IH SCH (19:26)
--- NOTE | 2018-10-27 19:46 | CARD ---
APPROVED REPORT Date of service: 10/27/2018 EXAM: Two-dimensional and M-mode echocardiogram with Doppler and color Doppler. Other Information Quality : GoodRhythm : NSR INDICATION Chest Pain 2D DIMENSIONS IVSd1.26 (0.7-1.1cm)LVDd4.50 (3.9-5.9cm) LVOT Diameter2.06 (1.8-2.4cm)PWd1.09 (0.7-1.1cm) IVSs1.60 (0.8-1.2cm)LVDs2.99 (2.5-4.0cm) FS (%) 33.5 %PWs1.72 (0.8-1.2cm) M-Mode DIMENSIONS Left Atrium (MM)4.81 (2.5-4.0cm)IVSd1.00 (0.7-1.1cm) Aortic Root3.56 (2.2-3.7cm)LVDd5.97 (4.0-5.6cm) Aortic Cusp Exc.1.72 (1.5-2.0cm)PWd0.88 (0.7-1.1cm) IVSs2.16 cmFS (%) 38 % LVDs3.69 (2.0-3.8cm)PWs1.91 cm Aortic Valve AoV Peak Tnsifiqi985.8cm/sAoV VTI27.6cmAO Peak GR.10mmHg LVOT Peak Ruefekve32.3cm/sLVOT VTI18.37cmAO Mean GR.6mmHg REYMUNDO (VMAX)0.17ef3TKR (VTI)1.12cm2 Mitral Valve MV E Kqcotxid58.7cm/sMV DECEL [id number] A Aqkarkdt248.8cm/s MV HCG02dzO/A ratio0.7MVA (PHT)2.58cm2 TDI Lateral E' Peak V8.07cm/sMedial E' Peak V4.40cm/sE/Lateral E'8.8 E/Medial E'16.1 LEFT VENTRICLE The left ventricle is normal size. There is borderline concentric left ventricular hypertrophy. The left ventricular systolic function is normal. The estimated ejection fraction is 55-60% No regional wall motion abnormalities noted.. Transmitral Doppler flow pattern is Grade I-abnormal relaxation pattern. No left ventricle thrombus noted on this study. There is no ventricular septal defect visualized. There is no left ventricular aneurysm. There is no mass noted in the left ventricle. RIGHT VENTRICLE The right ventricle is normal size. There is normal right ventricular wall thickness. The right ventricular systolic function is normal. ATRIA The left atrium is mildly dilated. The right atrium size is normal. The interatrial septum is likely intact but cannot rule out a possibility of small ASD or PFO. AORTIC VALVE The aortic valve is normal in structure. No aortic regurgitation is present. There is no aortic valvular stenosis. There is no aortic valvular vegetation. MITRAL VALVE The mitral valve is normal in structure. There is no evidence of mitral valve prolapse. There is no mitral valve stenosis. There is no mitral valve regurgitation noted. TRICUSPID VALVE The tricuspid valve is normal in structure. There is no tricuspid valve regurgitation noted. There is no tricuspid valve prolapse or vegetation. There is no tricuspid valve stenosis. PULMONIC VALVE The pulmonary valve is normal in structure. There is no pulmonic valvular regurgitation. There is no pulmonic valvular stenosis. GREAT VESSELS The aortic root is normal in size. The ascending aorta is normal in size. The pulmonary artery is normal. The IVC is normal in size and collapses >50% with inspiration. PERICARDIAL EFFUSION There is no pericardial effusion. There is no pleural effusion. <Conclusion> There is borderline concentric left ventricular hypertrophy. The estimated ejection fraction is 55-60% Transmitral Doppler flow pattern is Grade I-abnormal relaxation pattern. The left atrium is mildly dilated. There is no tricuspid valve regurgitation noted.
[2018-10-28] MEDS: Albuterol-Ipratrop 3 mg / 0.5 (3 ml) UD INH SCH ×6 (03:40→19:13)
[2018-10-28] MEDS: Polymyxin/Trimethoprim Ophth Soln OU SCH ×4 (04:31→21:37)
[2018-10-28] MEDS: Insulin Regular 100 units/ml SC SCH ×4 (06:34→21:38)
[2018-10-28] MEDS: Acetylcysteine 10% 4 ML IH SCH ×2 (08:23→19:13)
[2018-10-28] MEDS: Aspirin-Dipyridamole 200-25 mg ER Cap PO SCH ×2 (08:45→16:18)
[2018-10-28] MEDS: GlipiZIDE 10 mg SR Tab PO SCH ×2 (08:46→16:18)
[2018-10-28] MEDS: guaiFENesin 600 mg ER Tab PO SCH ×2 (08:46→21:38)
[2018-10-28] MEDS: levoFLOXacin 750 mg in D5W 750 MG/150 ML BAG IVPB SCH (08:49)
[2018-10-28] MEDS: Enoxaparin 40 mg Syringe SC SCH (08:52)
--- NOTE | 2018-10-28 08:59 | CP.PCM.PN ---
<Brea Mendoza - Last Filed: 10/28/18 19:03> Subjective - Date & Time of Evaluation Date of Evaluation: 10/28/18 Time of Evaluation: 08:57 - Subjective Subjective: Brea Mendoza, PGY-1, Cardiology Progress Note for Dr. Denise Patient was seen and evaluated at bedside. Patient had no acute overnight events. Patient reports chest pain and shortness of breath this morning but reports symptoms improve with nebulizer. Objective - Vital Signs/Intake and Output Vital Signs (last 24 hours): Temp Pulse Resp BP Pulse Ox 98.4 F 73 18 137/63 93 L 10/28/18 08:01 10/28/18 08:51 10/28/18 08:01 10/28/18 08:51 10/28/18 08:01 - Medications Medications: Current Medications Acetaminophen (Tylenol 325mg Tab) 650 mg PO Q6 PRN PRN Reason: Fever >100.4 F Acetylcysteine (Mucomyst 10% 4ml) 2 ml IH RBID [facility] Last Admin: 10/28/18 08:23 Dose: 2 ml Albuterol/Ipratropium (Duoneb 3 Mg/0.5 Mg (3 Ml) Ud) 3 ml INH RQ4 [facility] Last Admin: 10/28/18 08:23 Dose: 3 ml Atorvastatin Calcium (Lipitor) 80 mg PO HS [facility] Last Admin: 10/27/18 22:06 Dose: 80 mg Carvedilol (Coreg) 6.25 mg PO DAILY [facility] Last Admin: 10/28/18 08:51 Dose: 6.25 mg Dextrose (Dextrose 50% Inj) 0 ml IV STAT PRN; Protocol PRN Reason: Hypoglycemia Protocol Dextrose (Glutose 15) 0 gm PO ONCE PRN; Protocol PRN Reason: Hypoglycemia Protocol Dipyridamole/Aspirin (Aggrenox 25-200 Mg) 1 ea PO BID [facility] Last Admin: 10/28/18 08:45 Dose: Not Given Enoxaparin Sodium (Lovenox) 40 mg SC DAILY [facility]; Protocol Last Admin: 10/28/18 08:52 Dose: 40 mg Famotidine (Pepcid) 20 mg PO BID [facility] Last Admin: 10/28/18 08:46 Dose: Not Given Fenofibrate (Tricor) 145 mg PO DAILY [facility] Last Admin: 10/28/18 08:46 Dose: Not Given Gabapentin (Neurontin) 300 mg PO TID [facility] Last Admin: 10/28/18 08:46 Dose: Not Given Glipizide (Glucotrol Xl) 10 mg PO BIDWM [facility] Last Admin: 10/28/18 08:46 Dose: Not Given Glucagon (Glucagen Diagnostic Kit) 0 mg IM STAT PRN; Protocol PRN Reason: Hypoglycemia Protocol Guaifenesin (Mucinex La) 600 mg PO Q12 [facility] Last Admin: 10/28/18 08:46 Dose: Not Given Home Med (Amlodipine/Valsartan/Hcthiazid [Exforge Hct 10-320-25 Mg Tab]) 1 tab PO DAILY [facility] Home Med (Empagliflozin [Jardiance]) 25 mg PO DAILY [facility] Home Med (Insulin Glargine,Hum.Rec.Anlog [Touvicki Solnasir]) 20 units SQ DAILY [facility] Levofloxacin/Dextrose (Levaquin 750mg) 750 mg in 150 mls @ 100 mls/hr IVPB DAILY [facility]; Protocol Last Admin: 10/28/18 08:49 Dose: 100 mls/hr Insulin Human Regular (Humulin R) 0 units SC ACHS [facility]; Protocol Last Admin: 10/28/18 06:34 Dose: Not Given Metformin HCl (Glucophage) 1,000 mg PO BID [facility] Last Admin: 10/28/18 08:46 Dose: Not Given Nitroglycerin (Nitrostat Sl Tab) 0.4 mg SL Q5M PRN PRN Reason: chest pain Polymyxin/Trimethoprim Sulfate (Polytrim Ophth Soln) 1 drop OU Q6 [facility] Last Admin: 10/28/18 04:31 Dose: 1 drop - Labs Labs: 10/26/18 02:40 10/26/18 02:40 PT 13.3 Seconds (9.8-13.1) H 10/26/18 02:40 INR 1.2 10/26/18 02:40 APTT 31.5 Seconds (25.6-37.1) 10/26/18 02:40 - Constitutional Appears: Well, Non-toxic, No Acute Distress - Head Exam Head Exam: ATRAUMATIC, NORMAL INSPECTION, NORMOCEPHALIC - Eye Exam Eye Exam: EOMI, PERRL - ENT Exam ENT Exam: Mucous Membranes Moist - Respiratory Exam Respiratory Exam: Clear to Auscultation Bilateral, NORMAL BREATHING PATTERN - Cardiovascular Exam Cardiovascular Exam: REGULAR RHYTHM, RRR, +S1, +S2 - GI/Abdominal Exam GI & Abdominal Exam: Normal Bowel Sounds, Soft. absent: Tenderness - Extremities Exam Extremities exam: Positive for: full ROM, normal inspection. Negative for: pedal edema - Neurological Exam Neurological exam: Alert, CN II-XII Intact, Oriented x3 - Skin Skin Exam: Dry, Intact, Normal Color Assessment and Plan (1) Chest pain Assessment & Plan: EKG: sinus tachycardia with left axis deviation with HR: 101 Nuclear stress test 10/28: shows inferior wall defect Patient will need cardiac catheterization Continue with aspirin/dipyridamole, lipitor, coreg, fenofibrate, nitroglycerin Status: Acute (2) Diabetes mellitus Assessment & Plan: Patient is currently euglycemic HgbA1c: 11.6 Continue with metformin Status: Acute (3) Hypertension Assessment & Plan: Patient is currently normotensive Continue with coreg Status: Acute <Kleber Denise - Last Filed: 10/30/18 15:45> Objective - Vital Signs/Intake and Output Vital Signs (last 24 hours): Temp Pulse Resp BP Pulse Ox 98.1 F 84 20 138/72 90 L 10/30/18 12:25 10/30/18 12:25 10/30/18 12:25 10/30/18 12:25 10/30/18 12:25 - Medications Medications: Current Medications Acetaminophen (Tylenol 325mg Tab) 650 mg PO Q6 PRN PRN Reason: Fever >100.4 F Acetylcysteine (Mucomyst 10% 4ml) 2 ml IH RBID [facility] Last Admin: 10/30/18 07:46 Dose: 2 ml Albuterol/Ipratropium (Duoneb 3 Mg/0.5 Mg (3 Ml) Ud) 3 ml INH RQ4 [facility] Last Admin: 10/30/18 11:06 Dose: 3 ml Atorvastatin Calcium (Lipitor) 80 mg PO HS [facility] Last Admin: 10/29/18 22:45 Dose: 80 mg Carvedilol (Coreg) 6.25 mg PO DAILY [facility] Last Admin: 10/30/18 09:33 Dose: 6.25 mg Dextrose (Dextrose 50% Inj) 0 ml IV STAT PRN; Protocol PRN Reason: Hypoglycemia Protocol Dextrose (Glutose 15) 0 gm PO ONCE PRN; Protocol PRN Reason: Hypoglycemia Protocol Dipyridamole/Aspirin (Aggrenox 25-200 Mg) 1 ea PO BID [facility] Last Admin: 10/30/18 09:33 Dose: 1 ea Enoxaparin Sodium (Lovenox) 40 mg SC DAILY [facility]; Protocol Last Admin: 10/30/18 09:34 Dose: 40 mg Famotidine (Pepcid) 20 mg PO BID [facility] Last Admin: 10/30/18 09:35 Dose: 20 mg Fenofibrate (Tricor) 145 mg PO DAILY [facility] Last Admin: 10/30/18 09:36 Dose: 145 mg Gabapentin (Neurontin) 300 mg PO TID [facility] Last Admin: 10/30/18 15:17 Dose: 300 mg Glipizide (Glucotrol Xl) 10 mg PO BIDWM [facility] Last Admin: 10/30/18 09:34 Dose: 10 mg Glucagon (Glucagen Diagnostic Kit) 0 mg IM STAT PRN; Protocol PRN Reason: Hypoglycemia Protocol Guaifenesin (Mucinex La) 600 mg PO Q12 [facility] Last Admin: 10/30/18 09:35 Dose: 600 mg Home Med (Amlodipine/Valsartan/Hcthiazid [Exforge Hct 10-320-25 Mg Tab]) 1 tab PO DAILY [facility] Home Med (Empagliflozin [Jardiance]) 25 mg PO DAILY [facility] Insulin Detemir (Levemir) 20 units SC HS [facility] Last Admin: 10/29/18 22:40 Dose: Not Given Insulin Human Regular (Humulin R) 0 units SC ACHS [facility]; Protocol Last Admin: 10/30/18 12:55 Dose: 4 units Metformin HCl (Glucophage) 1,000 mg PO BID [facility] Last Admin: 10/30/18 09:34 Dose: 1,000 mg Nitroglycerin (Nitrostat Sl Tab) 0.4 mg SL Q5M PRN PRN Reason: chest pain Polymyxin/Trimethoprim Sulfate (Polytrim Ophth Soln) 1 drop OU Q6 [facility] Last Admin: 10/30/18 15:18 Dose: 1 drop - Labs Labs: 10/29/18 05:33 10/29/18 05:33 PT 13.3 Seconds (9.8-13.1) H 10/26/18 02:40 INR 1.2 10/26/18 02:40 APTT 31.5 Seconds (25.6-37.1) 10/26/18 02:40 Assessment and Plan (1) Chest pain Status: Acute (2) Diabetes mellitus Status: Acute (3) Hypertension Status: Acute (4) TIA (transient ischemic attack) Status: Acute Attending/Attestation - Attestation I have personally seen and examined this patient.: Yes I have fully participated in the care of the patient.: Yes I have reviewed all pertinent clinical information, including history, physical exam and plan: Yes
--- NOTE | 2018-10-28 10:29 | CP.PCM.PN ---
<Jef Figueroa - Last Filed: 10/28/18 10:22> Subjective - Date & Time of Evaluation Date of Evaluation: 10/28/18 Time of Evaluation: 07:00 - Subjective Subjective: Pt seen and examined this morning. Reports frustration that he is still here. Complains of sob and chest pain only with coughing but states his symptoms have improved since admission. Reports left sided groin pain, was told he had hernia in past. Has been eating, stooling, urinating normally. Discussed need for Stress Test today to further evaluate chest pain, pt agrees with plan. Objective - Vital Signs/Intake and Output Vital Signs (last 24 hours): Temp Pulse Resp BP Pulse Ox 98.4 F 73 18 137/63 93 L 10/28/18 08:01 10/28/18 08:51 10/28/18 08:01 10/28/18 08:51 10/28/18 08:01 - Medications Medications: Current Medications Acetaminophen (Tylenol 325mg Tab) 650 mg PO Q6 PRN PRN Reason: Fever >100.4 F Acetylcysteine (Mucomyst 10% 4ml) 2 ml IH RBID [facility] Last Admin: 10/28/18 08:23 Dose: 2 ml Albuterol/Ipratropium (Duoneb 3 Mg/0.5 Mg (3 Ml) Ud) 3 ml INH RQ4 [facility] Last Admin: 10/28/18 08:23 Dose: 3 ml Atorvastatin Calcium (Lipitor) 80 mg PO HS [facility] Last Admin: 10/27/18 22:06 Dose: 80 mg Carvedilol (Coreg) 6.25 mg PO DAILY [facility] Last Admin: 10/28/18 08:51 Dose: 6.25 mg Dextrose (Dextrose 50% Inj) 0 ml IV STAT PRN; Protocol PRN Reason: Hypoglycemia Protocol Dextrose (Glutose 15) 0 gm PO ONCE PRN; Protocol PRN Reason: Hypoglycemia Protocol Dipyridamole/Aspirin (Aggrenox 25-200 Mg) 1 ea PO BID [facility] Last Admin: 10/28/18 08:45 Dose: Not Given Enoxaparin Sodium (Lovenox) 40 mg SC DAILY [facility]; Protocol Last Admin: 10/28/18 08:52 Dose: 40 mg Famotidine (Pepcid) 20 mg PO BID [facility] Last Admin: 10/28/18 08:46 Dose: Not Given Fenofibrate (Tricor) 145 mg PO DAILY [facility] Last Admin: 10/28/18 08:46 Dose: Not Given Gabapentin (Neurontin) 300 mg PO TID [facility] Last Admin: 10/28/18 08:46 Dose: Not Given Glipizide (Glucotrol Xl) 10 mg PO BIDWM [facility] Last Admin: 10/28/18 08:46 Dose: Not Given Glucagon (Glucagen Diagnostic Kit) 0 mg IM STAT PRN; Protocol PRN Reason: Hypoglycemia Protocol Guaifenesin (Mucinex La) 600 mg PO Q12 [facility] Last Admin: 10/28/18 08:46 Dose: Not Given Home Med (Amlodipine/Valsartan/Hcthiazid [Exforge Hct 10-320-25 Mg Tab]) 1 tab PO DAILY [facility] Home Med (Empagliflozin [Jardiance]) 25 mg PO DAILY [facility] Home Med (Insulin Glargine,Hum.Rec.Anlog [Toujeo Solostar]) 20 units SQ DAILY [facility] Levofloxacin/Dextrose (Levaquin 750mg) 750 mg in 150 mls @ 100 mls/hr IVPB DAILY [facility]; Protocol Last Admin: 10/28/18 08:49 Dose: 100 mls/hr Insulin Human Regular (Humulin R) 0 units SC ACHS [facility]; Protocol Last Admin: 10/28/18 06:34 Dose: Not Given Metformin HCl (Glucophage) 1,000 mg PO BID [facility] Last Admin: 10/28/18 08:46 Dose: Not Given Nitroglycerin (Nitrostat Sl Tab) 0.4 mg SL Q5M PRN PRN Reason: chest pain Polymyxin/Trimethoprim Sulfate (Polytrim Ophth Soln) 1 drop OU Q6 [facility] Last Admin: 10/28/18 04:31 Dose: 1 drop - Labs Labs: 10/26/18 02:40 10/26/18 02:40 PT 13.3 Seconds (9.8-13.1) H 10/26/18 02:40 INR 1.2 10/26/18 02:40 APTT 31.5 Seconds (25.6-37.1) 10/26/18 02:40 - Constitutional Appears: No Acute Distress - Head Exam Head Exam: NORMAL INSPECTION - Eye Exam Eye Exam: Normal appearance - ENT Exam ENT Exam: Mucous Membranes Moist - Respiratory Exam Respiratory Exam: Clear to Ausculation Bilateral. absent: Accessory Muscle Use, Rales, Rhonchi, Wheezes - Cardiovascular Exam Cardiovascular Exam: REGULAR RHYTHM, +S1, +S2. absent: Murmur - GI/Abdominal Exam GI & Abdominal Exam: Soft, Normal Bowel Sounds. absent: Tenderness, Pulsatile Mass (No bulge on valsalva ) - Extremities Exam Extremities Exam: Normal Inspection - Neurological Exam Neurological Exam: Alert, Normal Gait - Psychiatric Exam Psychiatric exam: Normal Affect - Skin Skin Exam: Normal Color Assessment and Plan - Assessment and Plan (Free Text) Assessment: 68 y/o male with hx of HTN, DM, Hx of CVA and Former Smoker, who presents to ED with complaints of productive cough, chest pain, generalized weakness, and subjective fevers admitted for further evaluation of chest pain. # Chest pain # Cough # Dyspnea # Hyperglycemia - Chest pain: EKG NSR, no ischemic findings, LVH. Cardiac Enzymes negative x3. Cardiology consulted given high risk factors; Stress test today. - Levofloxacin for likely CAP - D dimer elevated; CT Angio: PE ruled out - Significant mucous secretions heard in airways; Chest physiotherapy ( Acapela device), mucolytics, Duonebulizer q4 - C/W basal insulin and Metfomin, pt has hx of poor compliance, HgA1c 11 - PT for mobility and strength- impaired functional ability, dispo home w/ outpatient PT 3-5x/week for gait training - Management of chronic conditions as ordered Discussed case with Dr. Leno Figueroa, PGY2 <Cachorro Burr - Last Filed: 10/29/18 23:30> Objective - Vital Signs/Intake and Output Vital Signs (last 24 hours): Temp Pulse Resp BP Pulse Ox 98.8 F 68 16 164/72 H 93 L 10/29/18 05:11 10/29/18 05:11 10/29/18 05:11 10/29/18 05:11 10/29/18 05:11 - Medications Medications: Current Medications Acetaminophen (Tylenol 325mg Tab) 650 mg PO Q6 PRN PRN Reason: Fever >100.4 F Acetylcysteine (Mucomyst 10% 4ml) 2 ml IH RBID [facility] Last Admin: 10/29/18 08:21 Dose: Not Given Albuterol/Ipratropium (Duoneb 3 Mg/0.5 Mg (3 Ml) Ud) 3 ml INH RQ4 [facility] Last Admin: 10/29/18 19:24 Dose: Not Given Atorvastatin Calcium (Lipitor) 80 mg PO HS [facility] Last Admin: 10/28/18 21:38 Dose: 80 mg Carvedilol (Coreg) 6.25 mg PO DAILY [facility] Last Admin: 10/29/18 08:28 Dose: Not Given Dextrose (Dextrose 50% Inj) 0 ml IV STAT PRN; Protocol PRN Reason: Hypoglycemia Protocol Dextrose (Glutose 15) 0 gm PO ONCE PRN; Protocol PRN Reason: Hypoglycemia Protocol Dipyridamole/Aspirin (Aggrenox 25-200 Mg) 1 ea PO BID [facility] Last Admin: 10/29/18 16:21 Dose: Not Given Enoxaparin Sodium (Lovenox) 40 mg SC DAILY [facility]; Protocol Last Admin: 10/29/18 08:29 Dose: Not Given Famotidine (Pepcid) 20 mg PO BID [facility] Last Admin: 10/29/18 16:23 Dose: Not Given Fenofibrate (Tricor) 145 mg PO DAILY [facility] Last Admin: 10/29/18 08:31 Dose: Not Given Gabapentin (Neurontin) 300 mg PO TID [facility] Last Admin: 10/29/18 16:22 Dose: Not Given Glipizide (Glucotrol Xl) 10 mg PO BIDWM [facility] Last Admin: 10/29/18 16:22 Dose: Not Given Glucagon (Glucagen Diagnostic Kit) 0 mg IM STAT PRN; Protocol PRN Reason: Hypoglycemia Protocol Guaifenesin (Mucinex La) 600 mg PO Q12 [facility] Last Admin: 10/29/18 08:30 Dose: Not Given Home Med (Amlodipine/Valsartan/Hcthiazid [Exforge Hct 10-320-25 Mg Tab]) 1 tab PO DAILY [facility] Home Med (Empagliflozin [Jardiance]) 25 mg PO DAILY [facility] Insulin Detemir (Levemir) 20 units SC HS [facility] Insulin Human Regular (Humulin R) 0 units SC [facility]; Protocol Last Admin: 10/29/18 16:22 Dose: Not Given Metformin HCl (Glucophage) 1,000 mg PO BID [facility] Last Admin: 10/29/18 16:21 Dose: Not Given Nitroglycerin (Nitrostat Sl Tab) 0.4 mg SL Q5M PRN PRN Reason: chest pain Polymyxin/Trimethoprim Sulfate (Polytrim Ophth Soln) 1 drop OU Q6 [facility] Last Admin: 10/29/18 16:23 Dose: Not Given - Labs Labs: 10/29/18 05:33 10/29/18 05:33 PT 13.3 Seconds (9.8-13.1) H 10/26/18 02:40 INR 1.2 10/26/18 02:40 APTT 31.5 Seconds (25.6-37.1) 10/26/18 02:40 Assessment and Plan - Assessment and Plan (Free Text) Assessment: Patient was personally seen and examined by me in rounds with residents. Available labs and diagnostic data reviewed. Case, Patient's condition and management plan discussed with residents in rounds. Agree with resident's progress note. Plan: As ordered.
[2018-10-28] MEDS ORDERED: Influenza Vaccine (5 YR UP)/PF 60 MCG/0.5 ML SYR IM ONE (16:47)
[2018-10-28] MEDS ORDERED: Influenza Vaccine 60 mcg/0.5 mL SYR (4YR UP) IM ONE (17:15)
[2018-10-29] MEDS: Albuterol-Ipratrop 3 mg / 0.5 (3 ml) UD INH SCH ×7 (00:02→23:39)
[2018-10-29] MEDS: Polymyxin/Trimethoprim Ophth Soln OU SCH ×4 (04:31→22:50)
[2018-10-29 05:58] LABS: BASO % 0.2 % (0.0-2.0); EOS % 0.5 % (0.0-4.0); LYMPH # 1.2 K/uL (1.0-4.3); LYMPH % 13.8 % (20.0-40.0); MEAN CELL VOLUME 95.1 fl (80.0-94.0); MEAN CORPUSCULAR HEMOGLOBIN 32.6 pg (27.0-31.0); MEAN CORPUSCULAR HGB CONC 34.2 g/dL (33.0-37.0); MEAN PLATELET VOLUME 7.5 fl (7.2-11.7); MONO # 0.9 K/uL (0.0-0.8); MONO % 10.3 % (0.0-10.0); NEUT # 6.7 K/uL (1.8-7.0); NEUT % 75.2 % (50.0-75.0); NRBC % 0.2 % (0.0-0.0); RBC 3.98 Mil/uL (4.40-5.90); RED CELL DISTRIBUTION WIDTH 12.4 % (11.5-14.5); WHITE BLOOD COUNT 8.9 K/uL (4.8-10.8)
[2018-10-29 06:07] LABS: ALBUMIN 3.6 g/dL (3.5-5.0); ALT/SGPT 43 U/L (21-72); AST/SGOT 49 U/L (17-59); BLOOD UREA NITROGEN 16 mg/dl (9-20); CALCIUM 9.3 mg/dL (8.4-10.2); GFR NON-AFRICAN AMERICAN > 60
[2018-10-29] MEDS: Acetylcysteine 10% 4 ML IH SCH (08:21)
[2018-10-29] MEDS: Aspirin-Dipyridamole 200-25 mg ER Cap PO SCH ×2 (08:27→16:21)
[2018-10-29] MEDS: GlipiZIDE 10 mg SR Tab PO SCH ×2 (08:28→16:22)
[2018-10-29] MEDS: Insulin Regular 100 units/ml SC SCH ×4 (08:29→22:10)
[2018-10-29] MEDS: levoFLOXacin 750 mg in D5W 750 MG/150 ML BAG IVPB SCH (08:29)
[2018-10-29] MEDS: Enoxaparin 40 mg Syringe SC SCH (08:29)
[2018-10-29] MEDS: guaiFENesin 600 mg ER Tab PO SCH ×2 (08:30→22:50)
--- NOTE | 2018-10-29 10:48 | CARD ---
APPROVED REPORT Date of service: 10/28/2018 Protocol: DANDRE Test Type: Nuclear Medications: ATORVASTANTIN 80MG COREG 6.25MG, LOVENOX 40MG, PEPCID 20MG, TRICOR 145MG NEURONTIN 300MG, GLUCOTROL 10MG AMLODIPINE/VALSARTAN/HCTHIAZID 10-25-320 MG METFORMIN 1000MG Medical History: HTN, DM, HX OF CVA, FORMER SMOKER, CHEST PAIN, Target HR: 152 bpm Resting ECG: normal Resting Heart Rate: 77 bpm Resting Blood Pressure: 122/63mmHg submaximum (85%): 129 bpm TEST SUMMARY [id number]. [id number]. PRETESTHYPERV.00:[id number]/[id number]. PRETESTWARM-UP22:[id number]/[id number]. EXERCISESTAGE 003:[id number]/60.0. EXERCISESTAGE 1/200:[id number]/60.0. [id number]/70.0. POST EXERCISE Reason for Termination: Fatigue Target HR: No Max HR: 90 bpm 61% of Maximum Predicted HR: 152 bpm Exercise duration: 03:44 min:sec, 2 Stage Exercise capacity: 2.6METs Max Blood Pressure: 160/60mmHg Blood Pressure response to exercise: normal resting BP - appropriate response Heart Rate response to exercise: appropriate Chest Pain: No, none Angina index: 0 Arrhythmia: No, none ST Change: No, none Deviation: 0 mm Clinical Indications Under Appropriate Use Criteria Patient admitted with history of hypertension, former smoker and history of chest pressure for nuclear stress test Stress EKG Interpretation No st or t waves changes noticed. No chest pain reported. Patient was not able to exercise due to feeling weak and dizzy. RESTING ECG Rhythm: Sinus Conduction: Normal Arrhythmias: None Repolarization: Normal STRESS ECG Rhythm: Sinus Conduction: Normal Arrhythmias: None Repolarization: Normal ST-Segment changes: none EXAM: Myocardial Perfusion REST/STRESS Image QualityGood Imaging Protocol The imaging protocol used to acquire images was Rest Tc-99m/stress Tc-99m 1 day Rest Spect myocardial perfusion imaging was performed in supine position 120 minutes following the injection of 10 mCi of Tc-99 Myoview. Time of rest injection: 8:32 Time of rest imagin:32 At peak stress, the patient was injected intravenously with 30mCi of Tc-99 tetrofosmin after an infusion time of minutes and seconds. Time of stress injection: 12:00 Time of stress imagin:44 Gated Stress Spect was performed 164 minutes after intravenous Tc-99 Myoview injection. The images were gated to evaluate regional wall motion and calculate ventricular ejection fraction. NUCLEAR IMAGE INTERPRETATION Study quality was excellent. Left Ventricular size was Normal at Rest and Stress. Lung uptake was Normal. Left Ventricular ejection fraction is 58%. LV Perfusion Abnormal perfusion scan with area of reversible defect affecting the inferior and lateral wall on the left ventricle. Reducion of the LVEF 58% LV Perfusion 1 Perfusion Defect Location: mid inferolateral Perfusion Defect Size: Medium (3-4 segments) Perfusion Defect Severity: Moderate Type of Perfusion Defect: Reversible Wall Motion Abnormal wall motion with hypokinesia of the inferior lateral wall of the left ventricle. Reduction of the LVEF 58% CONCLUSION 1. Further studies recommended (cardiac catheterization if clincially indicated)
[2018-10-29] MEDS ORDERED: Insulin Detemir 100 Units/ml Inj SC SCH (22:00)
[2018-10-30] MEDS: Polymyxin/Trimethoprim Ophth Soln OU SCH ×3 (04:30→15:18)
[2018-10-30] MEDS: Albuterol-Ipratrop 3 mg / 0.5 (3 ml) UD INH SCH ×4 (04:54→16:04)
[2018-10-30] MEDS: Acetylcysteine 10% 4 ML IH SCH (07:46)
--- NOTE | 2018-10-30 09:11 | PN ---
DATE: 10/30/2018 SUBJECTIVE: The patient seen and examined. Interim events noted. Consults noted and appreciated. Cardiology intervention noted and appreciated. The patient is status post stent. Case was discussed with Cardiology. The patient feels much better. No chest pain. No shortness of breath. PHYSICAL EXAMINATION: GENERAL: The patient is in no acute distress. VITAL SIGNS: Stable. HEART: S1, S2, normal and regular. LUNGS: Good bilateral air exchange. ABDOMEN: Soft and nontender. EXTREMITIES: No edema, no calf swelling, no tenderness. No acute ischemia. CENTRAL NERVOUS SYSTEM: Essentially unchanged. DIAGNOSTIC DATA: Available diagnostic data reviewed. Telemetry monitoring does not show significant arrhythmias. . ASSESSMENT AND PLAN: Overall, the patient is clinically stable and improved. Plan as ordered. Cachorro Burr MD
[2018-10-30] MEDS: Aspirin-Dipyridamole 200-25 mg ER Cap PO SCH (09:33)
[2018-10-30] MEDS: Enoxaparin 40 mg Syringe SC SCH (09:34)
[2018-10-30] MEDS: GlipiZIDE 10 mg SR Tab PO SCH (09:34)
[2018-10-30] MEDS: guaiFENesin 600 mg ER Tab PO SCH (09:35)
[2018-10-30] MEDS: Insulin Regular 100 units/ml SC SCH ×2 (09:42→12:55)
--- NOTE | 2018-10-30 15:44 | CP.PCM.PN ---
Subjective - Date & Time of Evaluation Date of Evaluation: 10/30/18 Time of Evaluation: 15:38 - Subjective Subjective: s/p LHCx with PCI of pLAD with MICHAEL x 1 feeling better walking around on the unit with no complaints Objective - Vital Signs/Intake and Output Vital Signs (last 24 hours): Temp Pulse Resp BP Pulse Ox 98.1 F 84 20 138/72 90 L 10/30/18 12:25 10/30/18 12:25 10/30/18 12:25 10/30/18 12:25 10/30/18 12:25 - Medications Medications: Current Medications Acetaminophen (Tylenol 325mg Tab) 650 mg PO Q6 PRN PRN Reason: Fever >100.4 F Acetylcysteine (Mucomyst 10% 4ml) 2 ml IH RBID [facility] Last Admin: 10/30/18 07:46 Dose: 2 ml Albuterol/Ipratropium (Duoneb 3 Mg/0.5 Mg (3 Ml) Ud) 3 ml INH RQ4 [facility] Last Admin: 10/30/18 11:06 Dose: 3 ml Atorvastatin Calcium (Lipitor) 80 mg PO HS [facility] Last Admin: 10/29/18 22:45 Dose: 80 mg Carvedilol (Coreg) 6.25 mg PO DAILY [facility] Last Admin: 10/30/18 09:33 Dose: 6.25 mg Dextrose (Dextrose 50% Inj) 0 ml IV STAT PRN; Protocol PRN Reason: Hypoglycemia Protocol Dextrose (Glutose 15) 0 gm PO ONCE PRN; Protocol PRN Reason: Hypoglycemia Protocol Dipyridamole/Aspirin (Aggrenox 25-200 Mg) 1 ea PO BID [facility] Last Admin: 10/30/18 09:33 Dose: 1 ea Enoxaparin Sodium (Lovenox) 40 mg SC DAILY [facility]; Protocol Last Admin: 10/30/18 09:34 Dose: 40 mg Famotidine (Pepcid) 20 mg PO BID [facility] Last Admin: 10/30/18 09:35 Dose: 20 mg Fenofibrate (Tricor) 145 mg PO DAILY [facility] Last Admin: 10/30/18 09:36 Dose: 145 mg Gabapentin (Neurontin) 300 mg PO TID [facility] Last Admin: 10/30/18 15:17 Dose: 300 mg Glipizide (Glucotrol Xl) 10 mg PO BIDWM [facility] Last Admin: 10/30/18 09:34 Dose: 10 mg Glucagon (Glucagen Diagnostic Kit) 0 mg IM STAT PRN; Protocol PRN Reason: Hypoglycemia Protocol Guaifenesin (Mucinex La) 600 mg PO Q12 [facility] Last Admin: 10/30/18 09:35 Dose: 600 mg Home Med (Amlodipine/Valsartan/Hcthiazid [Exforge Hct 10-320-25 Mg Tab]) 1 tab PO DAILY [facility] Home Med (Empagliflozin [Jardiance]) 25 mg PO DAILY [facility] Insulin Detemir (Levemir) 20 units SC HS [facility] Last Admin: 10/29/18 22:40 Dose: Not Given Insulin Human Regular (Humulin R) 0 units SC ACHS [facility]; Protocol Last Admin: 10/30/18 12:55 Dose: 4 units Metformin HCl (Glucophage) 1,000 mg PO BID [facility] Last Admin: 10/30/18 09:34 Dose: 1,000 mg Nitroglycerin (Nitrostat Sl Tab) 0.4 mg SL Q5M PRN PRN Reason: chest pain Polymyxin/Trimethoprim Sulfate (Polytrim Ophth Soln) 1 drop OU Q6 [facility] Last Admin: 10/30/18 15:18 Dose: 1 drop - Labs Labs: 10/29/18 05:33 10/29/18 05:33 PT 13.3 Seconds (9.8-13.1) H 10/26/18 02:40 INR 1.2 10/26/18 02:40 APTT 31.5 Seconds (25.6-37.1) 10/26/18 02:40 - Constitutional Appears: Well - Head Exam Head Exam: ATRAUMATIC, NORMAL INSPECTION, NORMOCEPHALIC - Eye Exam Eye Exam: EOMI, Normal appearance, PERRL Pupil Exam: NORMAL ACCOMODATION, PERRL - ENT Exam ENT Exam: Mucous Membranes Moist, Normal Exam - Neck Exam Neck Exam: Full ROM, Normal Inspection. absent: Lymphadenopathy - Respiratory Exam Respiratory Exam: Clear to Ausculation Bilateral, NORMAL BREATHING PATTERN - Cardiovascular Exam Cardiovascular Exam: REGULAR RHYTHM, +S1, +S2. absent: Murmur - GI/Abdominal Exam GI & Abdominal Exam: Soft, Normal Bowel Sounds. absent: Tenderness - Extremities Exam Extremities Exam: Full ROM, Normal Capillary Refill, Normal Inspection. absent: Joint Swelling, Pedal Edema - Back Exam Back Exam: NORMAL INSPECTION - Neurological Exam Neurological Exam: Alert, Awake, CN II-XII Intact, Normal Gait, Oriented x3 - Psychiatric Exam Psychiatric exam: Normal Affect, Normal Mood - Skin Skin Exam: Dry, Intact, Normal Color, Warm Assessment and Plan (1) Chest pain Assessment & Plan: s/p LHCx with PCI of pLAD with MICHAEL x 1 cont dapt cont bb cont exforge/hctz cont statins outpt f/u next week plan for FFR guided PCI of OM/RCA if patient has ischemic sx Status: Acute (2) Diabetes mellitus Status: Acute (3) Hypertension Status: Acute (4) TIA (transient ischemic attack) Status: Acute
[2018-10-30 16:19] VITALS: BP 109/57; PULSE 70; RESP 16; TEMP 98; O2SAT 95
--- NOTE | 2018-11-03 12:19 | PQF ---
PROVIDER RESPONSE TEXT: Other: NO CHF + CAD s/p LHCx with PCI of pLAD with MICHAEL x 1 REVIEWER QUERY TEXT: CHF Acuity and Type Congestive Heart Failure is documented in the Medical Record. Please document the type and acuity (in cludes probable or suspected) versus No CHF:history only and not a chronic condition versus CHF rul ed out Such as: Type: -- Systolic -- Diastolic -- Combined -- Other, please specify Acuity: -- Acute -- Chronic -- Acute on chronic -- Other, please specify 10/26: CXR: No Active Disease ProBNP: 183->112 10/26 ER record includes: Impression: 68 y/o with CHF 10/28/18@00:17--Admission order: Admit to inpatient ;Admitting dx.: Respiratory Distress, CHF - 10/26 Lasix IV stat, Coreg The patient's Clinical Indicators include: -- Query created by: Mica Candelaria on 10/28/2018 3:06 PM Electronically signed by: Cachorro Burr 11/03/2018 12:16 PM
--- NOTE | 2018-11-04 10:18 | PN ---
DATE: 10/29/2018 SUBJECTIVE: The patient seen and examined. Interim events noted. Consults noted and appreciated. Cardiology followup intervention noted and appreciated. The patient had a nuclear stress test, which was positive. The patient is scheduled for cardiac catheterization. The patient denies any chest pain or shortness of breath. PHYSICAL EXAMINATION: GENERAL: The patient is in no acute distress. VITAL SIGNS: Stable. HEART: S1 and S2. Normal and regular. LUNGS: Good bilateral air exchange. ABDOMEN: Soft, nontender. No organomegaly noted. Bowel sounds are present and normal. EXTREMITIES: No edema, no calf swelling, no tenderness, no acute ischemia. CENTRAL NERVOUS SYSTEM: Essentially unchanged. DIAGNOSTIC DATA: Available diagnostic data reviewed. As mentioned earlier, stress test was positive. The patient needs to schedule for cardiac catheterization. ASSESSMENT AND PLAN: Plan as ordered. Case and plan discussed with the patient. Cachorro Burr MD
--- NOTE | 2018-11-08 13:17 | PQF ---
PROVIDER RESPONSE TEXT: Bacterial pneumonia REVIEWER QUERY TEXT: Pneumonia Specificity Pneumonia is documented in the Medical Record. Please specify the type of pneumonia and the causative organism (includes probable or suspected) Such as: Type: -- Aspiration pneumonia (please also specify the aspirate) - Please indicate if the aspiration is postprocedure -- Bacterial (please document suspected or probable organism) -- Bronchopneumonia (please document suspected or probable organism) -- Interstitial pneumonia -- Organizing pneumonia / BOOP -- Pneumonia with influenza, wandy flu, or H1N1 flu -- RSV -- Tuberculosis, pulmonary -- Viral -- Other, please specify The patient's Clinical Indicators include: 10/27 and 10/28 progress note documented "levofloxacin for likely CAP." Pt went for cardiac cath Query created by: Hollie Gold on 11/04/2018 10:32 AM Electronically signed by: Cachorro Burr 11/08/2018 1:14 PM
== END 2018-10-30 16:40 | disposition home or self-care (01) | DRG 246 ==
LOC: H.ER 01:26 → INTOOBSV 02:47 → H.ERHOLD 02:47 → H.TEL 11:55 → OBSVTOIN 10-28 00:17 → H.TEL 10-30 02:51
PROVIDERS: ADMIT Internal Medicine; ATTEND Internal Medicine
PROC: 3E0234Z Introduction of Serum, Toxoid and Vaccine into Muscle, Percutaneous Approach (ICD-10-PCS; principal; 2018-10-28)
PROC: 3E02340 Introduction of Influenza Vaccine into Muscle, Percutaneous Approach (ICD-10-PCS; 2018-10-28)
PROC: 027034Z Dilation of Coronary Artery, One Artery with Drug-eluting Intraluminal Device, Percutaneous Approach (ICD-10-PCS; 2018-10-29)
PROC: 4A023N7 Measurement of Cardiac Sampling and Pressure, Left Heart, Percutaneous Approach (ICD-10-PCS; 2018-10-29)
PROC: B216YZZ Fluoroscopy of Right and Left Heart using Other Contrast (ICD-10-PCS; 2018-10-29)
PROC: B215YZZ Fluoroscopy of Left Heart using Other Contrast (ICD-10-PCS; 2018-10-29)
DX: I25.119 Atherosclerotic heart disease of native coronary artery with unspecified angina pectoris (principal); J15.9 Unspecified bacterial pneumonia; E11.65 Type 2 diabetes mellitus with hyperglycemia; Z79.4 Long term (current) use of insulin; R91.8 Other nonspecific abnormal finding of lung field; Z86.73 Personal history of transient ischemic attack (TIA), and cerebral infarction without residual deficits; Z87.891 Personal history of nicotine dependence; R00.0 Tachycardia, unspecified; E78.00 Pure hypercholesterolemia, unspecified; Z23 Encounter for immunization; I10 Essential (primary) hypertension